=== PATIENT | female | born 1970 | race Caucasian/White ===

== ENCOUNTER 2016-08-17 08:42 | Emergency (ER) | payer OTHER ==
[~2016-08-17] VITALS: Ht 167.6 cm; Wt 89.0 kg
[~2016-08-17 08:42] MED LIST: BCPILLS PO; ONDA4TAB7 SL
[2016-08-17 08:49] VITALS: TEMP 36.5; O2SAT 98; Ht 167.6 cm; Wt 89.0 kg
[2016-08-17] MEDS ORDERED: DICLOFENAC PO (09:13)
[2016-08-17] MEDS ORDERED: MULT-506 PO (09:13)
[2016-08-17] MEDS ORDERED: BUPR-79 PO (09:13)
[2016-08-17 09:19] LABS: BASO % 0.3 %; BASO ABS # 0.02 K/uL (0-0.2); COMPLETE YES; EOS % 3.4 %; HEMATOCRIT 39.6 % (37-47); IG% 0.3 %; LYMPH % 47.1 %; LYMPH ABS # 2.87 K/uL (1.2-3.4); MEAN CELL VOLUME 91.9 fL (80-100); MEAN CORPUSCULAR HEMOGLOBIN 31.6 pg (25-34); MEAN CORPUSCULAR HGB CONC 34.3 g/dl (32-36); MEAN PLATELET VOLUME 10.5 fL (7.4-10.4); MONO % 6.7 %; NEUT % 42.2 %; PLATELET COUNT 310 K/uL (130-400); RED BLOOD COUNT 4.31 M/uL (4.2-5.4); WHITE BLOOD COUNT 6.09 K/uL (4.8-10.8)
[2016-08-17 09:30] LABS: BUN/CREATININE RATIO 10.8 (10-20); CALCIUM 8.7 mg/dl (8.5-10.1); CREATININE 0.92 mg/dl (0.60-1.20); POTASSIUM 3.9 mmol/L (3.5-5.1)
--- NOTE | 2016-08-17 10:12 | DIAGNOSTIC IMAGING REPORT ---
CHEST 2 VIEWS ROUTINE CLINICAL HISTORY: Right-sided chest pain radiating to the right arm COMPARISON STUDY: 11/04/2009 FINDINGS: The cardiac and mediastinal contours are normal. There is no evidence of focal pulmonary consolidation. There is no evidence of failure. No pleural effusions are visualized.[ IMPRESSION: No active disease in the chest. Electronically signed by: Tung Armando M.D. 08/17/2016 10:10 AM Dictated Date/Time: 08/17/2016 10:10 AM
--- NOTE | 2016-08-17 10:25 | EMERGENCY ROOM VISIT NOTE ---
History First contact with patient: 08:49 Chief Complaint: CHEST PAIN Stated Complaint: CHEST PAIN Nursing Triage Summary: Pt to ED via ALS. Pt reports 8/10 right sided chest pain radiating to right shoulder and arm starting at 0720 this am. Associated with SOB. Went to walk in clinic. Given 4 81mg ASA and called EMS. Upon arrival to ED reports 0/10 chest pain. Denies any cardia hx or pe. History of Present Illness The patient is a 45 year old ex-smoker female who presents to the Emergency Room with complaints of chest pain since 7:20AM today. She reports she woke up with this pain, which was initially on the left side of the chest which radiated to the right side and down the right arm. She reported the pain was an 8/10 initially, sharp in nature, but denied any associated shortness of breath or nausea. She went to an Urgent Care in [place], and received 4 x 81 mg Aspirin PO and was transferred by EMS to here. She reports her chest pain has improved but still has a dull ache on the right side of the chest. She is an ex- smoker, having stopped in Summer 2015 with Wellbutrin. She also reports a history of Rheumatic fever for which she was on penicillin for 5 years, which she had to stop when , and her follow up echocardiograms have been normal. Review of Systems See HPI for pertinent positives & negatives. A total of 10 systems reviewed and were otherwise negative. Past Medical/Surgical History Medical Problems: (1) Acute Pancreatitis Surgical Problems: (1) Cholelith W Cholecys Nec Social History Problems: (1) Tobacco Use Disorder Rheumatic Fever, for which she was on penicillin for 5 years Family History No FHx of cardiac disease. Social History Smoking Status: Former Smoker Occupation Status: employed Current/Historical Medications Scheduled Bupropion (Wellbutrin Sr), 300 MG PO Q2D Multivitamin (Multivitamin), 1 TAB PO DAILY [Diclofenac], 1 TAB PO Q2D Allergies Coded Allergies: No Known Allergies (Unverified , 08/17/16) Physical Exam Vital Signs Date Time Temp Pulse Resp B/P Pulse Ox O2 Delivery O2 Flow Rate FiO2 08/17/16 10:09 53 16 123/80 98 Room Air 75 132/78 66 135/76 08/17/16 08:51 53 08/17/16 08:49 36.5 57 20 140/86 98 Room Air 08/17/16 08:49 99 Room Air 08/17/16 08:49 98 Room Air Physical Exam GENERAL: Awake, alert, well-appearing, in no acute distress HENT: Normocephalic, atraumatic. Oropharynx unremarkable. EYES: Normal conjunctiva. Sclera non-icteric. NECK: Supple. No nuchal rigidity. FROM. No JVD. RESPIRATORY: Clear to auscultation. CARDIAC: Regular rate, normal rhythm. Extremities warm and well perfused. Pulses equal. ABDOMEN: Soft, non-distended. No tenderness to palpation. No rebound or guarding. No masses. RECTAL: Deferred. MUSCULOSKELETAL: Chest examination reveals tenderness to palpation of the right costochondral angles. The back is symmetrical on inspection without obvious abnormality. There is no CVA tenderness to palpation. No joint edema. LOWER EXTREMITIES: Calves are equal size bilaterally and non-tender. No edema. No discoloration. NEURO: Normal sensorium. No sensory or motor deficits noted. SKIN: No rash or jaundice noted. Medical Decision & Procedures Laboratory Results 08/17/16 08:10 Red Blood Count 4.31, Mean Corpuscular Volume 91.9, Mean Corpuscular Hemoglobin 31.6, Mean Corpuscular Hemoglobin Concent 34.3, Mean Platelet Volume 10.5, Neutrophils (%) (Auto) 42.2, Lymphocytes (%) (Auto) 47.1, Monocytes (%) (Auto) 6.7, Eosinophils (%) (Auto) 3.4, Basophils (%) (Auto) 0.3, Neutrophils # (Auto) 2.56, Lymphocytes # (Auto) 2.87, Monocytes # (Auto) 0.41, Eosinophils # (Auto) 0.21, Basophils # (Auto) 0.02 08/17/16 08:10 Test 08/17/16 08:10 08/17/16 09:19 08/17/16 11:06 White Blood Count 6.09 K/uL (4.8-10.8) Red Blood Count 4.31 M/uL (4.2-5.4) Hemoglobin 13.6 g/dL (12.0-16.0) Hematocrit 39.6 % (37-47) Mean Corpuscular Volume 91.9 fL (80-100) Mean Corpuscular Hemoglobin 31.6 pg (25-34) Mean Corpuscular Hemoglobin Concent 34.3 g/dl (32-36) Platelet Count 310 K/uL (130-400) Mean Platelet Volume 10.5 fL (7.4-10.4) Neutrophils (%) (Auto) 42.2 % Lymphocytes (%) (Auto) 47.1 % Monocytes (%) (Auto) 6.7 % Eosinophils (%) (Auto) 3.4 % Basophils (%) (Auto) 0.3 % Neutrophils # (Auto) 2.56 K/uL (1.4-6.5) Lymphocytes # (Auto) 2.87 K/uL (1.2-3.4) Monocytes # (Auto) 0.41 K/uL (0.11-0.59) Eosinophils # (Auto) 0.21 K/uL (0-0.5) Basophils # (Auto) 0.02 K/uL (0-0.2) RDW Standard Deviation 44.0 fL (36.4-46.3) RDW Coefficient of Variation 13.1 % (11.5-14.5) Immature Granulocyte % (Auto) 0.3 % Immature Granulocyte # (Auto) 0.02 K/uL (0.00-0.02) Anion Gap 12.0 mmol/L (3-11) Est Creatinine Clear Calc Drug Dose 84.9 ml/min Estimated GFR () 85.9 Estimated GFR (Non- 74.2 BUN/Creatinine Ratio 10.8 (10-20) Calcium Level 8.7 mg/dl (8.5-10.1) Total Bilirubin 0.3 mg/dl (0.2-1) Aspartate Amino Transf (AST/SGOT) 19 U/L (15-37) Alanine Aminotransferase (ALT/SGPT) 31 U/L (12-78) Alkaline Phosphatase 70 U/L (45-117) Total Protein 6.8 gm/dl (6.4-8.2) Albumin 3.4 gm/dl (3.4-5.0) Globulin 3.4 gm/dl (2.5-4.0) Albumin/Globulin Ratio 1.0 (0.9-2) Bedside D-Dimer 196 ng/mlFEU (0-450) Bedside Troponin I 0.000 ng/ml (0-0.045) ECG Indication: altered mental status Rhythm: sinus bradycardia Findings: no acute ischemic change ED Course 8:30: The patient was evaluated in room B7. A complete history and physical exam were performed. I ordered a CBC, CMP, POC Troponin/D-Dimer and 2 view CXR. 10:43: CXR and labwork were unremarkable. I explained this to the patient and she felt better as well. 11:15: I reviewed the pt with the Attending, Dr. Nichols, who also saw the patient. She reported the soreness in the chest had returned. Her repeat Troponin came back negative. 11:30: The patient had an ambulation trial which did not elicit any further chest pain. 11:46: The patient was discharged home with her mother in good condition. Medical Decision 45 yo F with chest pain that was initially reproducible to palpation since this morning. Differential includes cardiac, pleurisy, pericarditis, arrhythmia, musculoskeletal, or GERD. She had an IV placed and labs drawn. Her initial and repeat Troponins were negative. Her EKG was sinus bradycardia without any ST elevation or other ischemic changes. She was able to ambulate without difficulty and chest pain did not reoccur. She was discharged home in good condition with her mother. She was advised to follow up with her PCP. Impression Primary Impression: Chest wall pain Departure Information Dispostion Home / Self-Care Condition GOOD Referrals Daniel Duggan M.D. (PCP) Patient Instructions My [facility] Resident Tracking Resident Involvement: Resident Care Provided Care Provided: Adult ED
--- NOTE | 2016-08-17 11:19 | EMERGENCY ROOM VISIT NOTE ---
ED Visit Note First contact with patient: 08:49 Resident Physician Supervision Note: I was present with Dr. Judge during the history and exam. I discussed the case with the resident and agree with the findings and plan as documented in the note. Any exceptions or clarifications are listed here: [None] Documented By: Thierry Nichols
[2016-08-17 11:49] VITALS: BP 130/78; PULSE 58; O2SAT 98
== END 2016-08-17 11:55 | disposition home or self-care (01) ==
LOC: EDBD 08:42 → C.EDB 08:42
DX: R07.89 Other chest pain (principal); Z87.891 Personal history of nicotine dependence; Z86.79 Personal history of other diseases of the circulatory system; Z79.1 Long term (current) use of non-steroidal anti-inflammatories (NSAID)